=== PATIENT | male | born 1995 | race Caucasian/White ===

== ENCOUNTER 2017-11-09 21:53 | Emergency (ER) | payer BC, MEDICAID ==
[~2017-11-09] VITALS: Ht 180.3 cm; Wt 120.2 kg
[2017-11-09 21:55] VITALS: BP 147/66
--- NOTE | 2017-11-09 21:57 | NUR ---
PT TO ER BED 4
--- NOTE | 2017-11-09 22:05 | NUR ---
22 Y/O M W/C/O L WRIST PAIN X 1 MTH ON AND OFF. PT DENIES ANY INJURY. NO OTHER S/S OF DISTRESS NOTED, SKIN PINK AND WARM, CAP LESS THAN 3. ER MD MADE AWARE.
--- NOTE | 2017-11-09 23:00 | NUR ---
X-RAY AT BEDSIDE
[2017-11-09 23:24] VITALS: BP 145/82
--- NOTE | 2017-11-09 23:24 | NUR ---
Patient discharged with v/s stable. Written and verbal after care instructions given and explained. Patient alert, oriented and verbalized understanding of instructions. Ambulatory with steady gait. All questions addressed prior to discharge. ID band removed. Patient advised to follow up with PMD TOMORROW OR RETURN BACK IF CONDITION WORSENS. Rx of NAPROSYN given. Patient educated on indication of medication including possible reaction and side effects. Opportunity to ask questions provided and answered.
== END 2017-11-09 23:24 | disposition home or self-care (01) ==
LOC: MED 21:53
DX: M67.432 Ganglion, left wrist (principal)
CPT/HCPCS: 29125; 73100; 99284; Q0092

== ENCOUNTER 2019-08-09 16:24 | Emergency (ER) | payer MEDICAID ==
[~2019-08-09] VITALS: Ht 180.3 cm; Wt 142.4 kg
[2019-08-09 16:30] VITALS: BP 118/90
[2019-08-09] MEDS ORDERED: IBUPROFEN 800 MG TAB PO ONE (16:35)
[2019-08-09] MEDS ORDERED: IBUPROFEN 600 MG TAB PO ONE (16:40)
--- NOTE | 2019-08-09 16:42 | NUR ---
Influenza swab collected and given to [facility]
--- NOTE | 2019-08-09 16:49 | NUR ---
Patient ambulated to bed 12. RN evaluating patient at bedside.
--- NOTE | 2019-08-09 17:20 | NUR ---
Pt. temp 99.1 after motrin administration. will continue to monitor patient.
--- NOTE | 2019-08-09 17:44 | NUR ---
24M came to ER C/o fever, headache, runny nose, and cough x 3 days. Pt. was given tylenol upon triage. AAOx4. VSS. PmHx: denies
[2019-08-09 18:59] VITALS: BP 115/71
--- NOTE | 2019-08-09 18:59 | NUR ---
Patient discharged with v/s stable. Written and verbal after care instructions given and explained. Patient alert, oriented and verbalized understanding of instructions. Ambulatory with steady gait. All questions addressed prior to discharge. ID band removed. Patient advised to follow up with PMD. Rx of MOTRIN AND PROMETHAZINE given. Patient educated on indication of medication including possible reaction and side effects. Opportunity to ask questions provided and answered.
== END 2019-08-09 18:59 | disposition home or self-care (01) ==
LOC: MED 16:24
DX: B33.8 Other specified viral diseases (principal)
CPT/HCPCS: 87804; 99283